=== PATIENT | female | born 1970 | race Caucasian/White ===

== ENCOUNTER → 2019-12-26 | Outpatient (CLI) | payer OTHER | LOC: M LABSMTC 10:58 | PROVIDERS: ATTEND Anesthesiology | DX: Z01.812 Encounter for preprocedural laboratory examination (principal); Z11.59 Encounter for screening for other viral diseases ==

== ENCOUNTER 2019-12-31 06:21 | Day surgery (SDC) | payer OTHER ==
[~2019-12-31] VITALS: Ht 167.6 cm; Wt 87.1 kg
[2019-12-31] MEDS ORDERED: LIDOCAINE 1% SDV 30ML VIAL As Ordered ONE (07:13)
[2019-12-31] MEDS ORDERED: ONDANSETRON 4MG/2ML VIAL As Ordered ONE (07:17)
[2019-12-31] MEDS ORDERED: fentaNYL 100 MCG/2 ML INJECTION (J3010) As Ordered ONE (07:17)
[2019-12-31] MEDS ORDERED: LIDOCAINE 2% 100MG/5ML SDV (FOR ANES.) As Ordered ONE (07:17)
[2019-12-31] MEDS ORDERED: propofoL 200 MG/20 ML VIAL As Ordered ONE (07:17)
[2019-12-31] MEDS ORDERED: METOCLOPRAMIDE INJ 10MG/2ML VIAL (J2765 PER 1) As Ordered ONE (07:17)
[2019-12-31] MEDS ORDERED: ROCURONIUM BROMIDE 50 MG/5 ML VIAL As Ordered ONE (07:17)
[2019-12-31] MEDS ORDERED: dexameTHASONE 4 MG/ML 1ML VIAL (J1100 PER 1MG) As Ordered ONE (07:17)
[2019-12-31] MEDS ORDERED: MIDAZOLAM INJ 2MG/2ML VIAL (J2250 PER 1MG) As Ordered ONE (07:18)
[2019-12-31] MEDS ORDERED: CLINDAMYCIN 900 MG/50 ML PREMIX BAG As Ordered ONE (07:34)
[2019-12-31] MEDS ORDERED: BUPIVACAINE HCL 0.5% 30 ML VIAL As Ordered ONE (07:41)
[2019-12-31] MEDS ORDERED: SUGAMMADEX SODIUM 500 MG/5 ML VIAL (BRIDION) As Ordered ONE (08:16)
[2019-12-31] MEDS ORDERED: KETOROLAC 60MG 2ML VIAL As Ordered ONE (08:16)
[2019-12-31] MEDS ORDERED: LR 1,000 ML IV ONE (09:45)
[2019-12-31] MEDS ORDERED: fentaNYL 100 MCG/2 ML INJECTION (J3010) IV PRN (09:45)
[2019-12-31] MEDS ORDERED: ONDANSETRON 4MG/2ML VIAL IV PRN (09:45)
[2019-12-31] MEDS ORDERED: oxyCODONE 5MG TAB PO PRN (09:45)
[2019-12-31] MEDS ORDERED: LR 1,000 ML IV SCH ×2 (09:45→10:00)
[2019-12-31 11:10] VITALS: BP 156/90
--- NOTE | 2020-02-13 09:55 | RO ---
DATE OF OPERATION: 12/31/2019 PREOPERATIVE DIAGNOSIS: Right shoulder mass. POSTOPERATIVE DIAGNOSIS: Right shoulder mass. PROCEDURE: Excision of right shoulder mass. SURGEON: Dr. Sean Guthrie ANESTHESIA: General. IV FLUIDS: Lactated Ringer's. ESTIMATED BLOOD LOSS: Less than 5 mL. IMPLANTS: None. CLOSURE: Monocryl and Steri-Strips. SPECIMEN: Right shoulder mass (presumed lipoma) send for permanent pathology. INDICATIONS: The patient has had a right shoulder mass that has been interfering with her quality of life. Preoperative workup including ultrasound and MRI revealed an encapsulated mass most consistent with a lipoma. No concerning features requiring IV contrast. Risks and benefits of the surgical excision were discussed and informed consent obtained. She understood there is the possibility of a low-grade liposarcoma which would require further surgical treatment. The patient's right shoulder was signed and she was brought to the operating room and placed supine on a well-padded OR table. General anesthesia was induced. She then positioned about 45 degrees in the beach chair position, and all bony prominences were well padded. Bilateral Venodyne boots for DVT prophylaxis. The right arm was then prepped and draped in a normal sterile fashion with ChloraPrep. She received appropriate IV antibiotics within one hour of incision. Prior to incision, a timeout was performed per hospital protocol. The mass was centered over the anterior deltoid. The skin was infiltrated with 0.5% Marcaine and then I made a longitudinal incision with a 15 blade over the mass. Dissection through the subcutaneous tissue with electrocautery and Metzenbaum scissors. The mass was located quite superficial and definitely superficial to the fascia. It was fairly well encapsulated. [place] retractors were then positioned and the presumed lipoma was released from the deltoid fascia and surrounding subcutaneous fat en bloc. Meticulous hemostasis with electrocautery. The mass was then sent for pathology. The remaining surgical field was inspected and there was no remaining lipoma. Incision was then carefully irrigated. Any residual bleeding was cauterized, and then the wound was closed in a layered fashion with 2-0 Vicryl and a running Monocryl. Steri- Strips were placed. A total of 12 mL of 0.5% Marcaine without epinephrine was injected. Sterile dressing was then applied. Drapes taken down. All counts were correct times 2. Complications: None. DISPOSITION: The patient was extubated and transferred to the PACU in stable condition. ALCON
== END 2019-12-31 11:22 | disposition home or self-care (01) ==
LOC: M SDC 06:21
PROVIDERS: ATTEND Orthopaedic Surgery
DX: D17.21 Benign lipomatous neoplasm of skin and subcutaneous tissue of right arm (principal); Z88.1 Allergy status to other antibiotic agents; Z79.899 Other long term (current) drug therapy; G43.909 Migraine, unspecified, not intractable, without status migrainosus; Z88.2 Allergy status to sulfonamides
CPT/HCPCS: 11403; 81025; 88304; J1100; J1885; J2250; J2405; J2765; J3010

== ENCOUNTER → 2021-06-15 | Outpatient (CLI) | payer OTHER | LOC: M WHC 07:16 | PROVIDERS: ATTEND Obstetrics & Gynecology | DX: Z12.31 Encounter for screening mammogram for malignant neoplasm of breast (principal) ==

== ENCOUNTER → 2022-06-16 | Outpatient (CLI) | payer OTHER | LOC: M WHC 07:28 | PROVIDERS: ATTEND Obstetrics & Gynecology | DX: Z12.31 Encounter for screening mammogram for malignant neoplasm of breast (principal) ==

== ENCOUNTER → 2022-07-06 | Outpatient (CLI) | payer OTHER | LOC: M WHC 15:25 | PROVIDERS: ATTEND Obstetrics & Gynecology | DX: Z30.433 Encounter for removal and reinsertion of intrauterine contraceptive device (principal) ==

== ENCOUNTER 2022-08-17 14:05 | Day surgery (SDC) | payer OTHER ==
[~2022-08-17] VITALS: Ht 167.6 cm; Wt 88.0 kg
[2022-08-17] MEDS ORDERED: LR 1,000 ML IV SCH ×2 (14:30→18:45)
[2022-08-17 14:40] LABS: HEMATOCRIT 40.3 % (36.0-47.0); HEMOGLOBIN 12.2 g/dl (12.0-15.5); MEAN CORPUSCULAR HEMOGLOBIN 18.1 pg (27.0-33.0); MEAN CORPUSCULAR HGB CONC 30.3 g/dl (32.0-36.5); MEAN CORPUSCULAR VOLUME 59.9 fl (80.0-96.0); PLATELET COUNT, AUTOMATED 370 10^3/uL (150-450); RED BLOOD COUNT 6.73 10^6/uL (4.00-5.40); WHITE BLOOD COUNT 9.2 10^3/uL (4.0-10.0)
[2022-08-17] MEDS ORDERED: propofoL 200 MG/20 ML VIAL As Ordered ONE ×2 (17:30→18:25)
[2022-08-17] MEDS ORDERED: LIDOCAINE 2% 100MG/5ML SDV (FOR ANES.) As Ordered ONE (17:30)
[2022-08-17] MEDS ORDERED: LIDOCAINE W/EPINEPHRINE 1% 20ML VIAL As Ordered ONE (17:57)
[2022-08-17] MEDS ORDERED: LEVONORGESTREL 52MG (MIRENA) IUD As Ordered ONE (17:58)
[2022-08-17] MEDS ORDERED: KETOROLAC 60MG 2ML VIAL As Ordered ONE (18:12)
[2022-08-17] MEDS ORDERED: LABETALOL 100MG/20ML VIAL As Ordered ONE (18:14)
[2022-08-17] MEDS ORDERED: ONDANSETRON 4MG 2ML VIAL IV PRN (18:45)
[2022-08-17] MEDS ORDERED: HYDROMORPHONE HCL 0.5 MG/ 0.5 ML SYRINGE IV PRN (18:45)
[2022-08-17] MEDS ORDERED: fentaNYL 100 MCG/2 ML INJECTION IV PRN (18:45)
[2022-08-17] MEDS ORDERED: oxyCODONE 5MG TAB PO PRN (18:45)
[2022-08-17 19:10] VITALS: BP 167/95
[2022-08-17 20:36] LABS: FOLLICLE STIMULATING HORMONE 70.3 mIU/ML
== END 2022-08-17 19:37 | disposition home or self-care (01) ==
LOC: M SDC 14:05
PROVIDERS: ATTEND Obstetrics & Gynecology
DX: D25.9 Leiomyoma of uterus, unspecified (principal); N85.4 Malposition of uterus; D64.9 Anemia, unspecified; G43.909 Migraine, unspecified, not intractable, without status migrainosus; Z88.2 Allergy status to sulfonamides; Z88.1 Allergy status to other antibiotic agents
CPT/HCPCS: 36415; 58300; 81025; 83001; 83002; 85027; 86850; 86900; 86901; J1885

== ENCOUNTER 2023-04-26 20:38 | Emergency (ER) | payer OTHER ==
[~2023-04-26] VITALS: Ht 165.1 cm; Wt 89.9 kg
[2023-04-26 20:38] VITALS: TEMP 97
[2023-04-26 21:42] LABS: BASO # 0.1 10^3/uL (0.0-0.2); BASO % 0.7 % (0.0-1.0); EOS # 0.4 10^3/uL (0.0-0.5); EOS % 3.6 % (0.0-3.0); HEMATOCRIT 37.8 % (36.0-47.0); HEMOGLOBIN 11.5 g/dl (12.0-15.5); LYMPH # 2.8 10^3/uL (1.5-5.0); LYMPH % 23.1 % (24.0-44.0); MEAN CORPUSCULAR HEMOGLOBIN 18.7 pg (27.0-33.0); MEAN CORPUSCULAR HGB CONC 30.4 g/dl (32.0-36.5); MEAN CORPUSCULAR VOLUME 61.5 fl (80.0-96.0); MONO # 0.6 10^3/uL (0.0-0.8); MONO % 5.1 % (2.0-8.0); NEUTROPHILS # 8.1 10^3/uL (1.5-8.5); NEUTROPHILS % 66.8 % (36.0-66.0); PLATELET COUNT, AUTOMATED 394 10^3/uL (150-450); RED BLOOD COUNT 6.15 10^6/uL (4.00-5.40); WHITE BLOOD COUNT 12.1 10^3/uL (4.0-10.0)
[2023-04-26] MEDS ORDERED: KETOROLAC 30 MG/ML 1ML VIAL IV ONE (21:50)
[2023-04-26] MEDS ORDERED: NS 1,000 ML IV SCH (21:50)
[2023-04-26 21:55] LABS: LIPASE 28 U/L (12-53)
[2023-04-26 21:57] LABS: ALBUMIN 4.3 G/DL (3.2-5.2); ALKALINE PHOSPHATASE 84 U/L (46-116); ALT/SGPT 57 U/L (7.0-40); AST/SGOT 34 U/L (<34); BILIRUBIN,DIRECT 0.4 MG/DL (<0.4); BILIRUBIN,TOTAL 1.2 MG/DL (0.3-1.2); BLOOD UREA NITROGEN 13 MG/DL (9-23); CALCIUM LEVEL 9.9 MG/DL (8.5-10.1); CARBON DIOXIDE LEVEL 28 MMOL/L (20-31); CHLORIDE LEVEL 107 MMOL/L (98-107); CREATININE FOR GFR 0.62 MG/DL (0.55-1.30); GLOMERULAR FILTRATION RATE > 60.0 (>51); GLUCOSE, FASTING 89 MG/DL (60-100); POTASSIUM SERUM 4.3 MMOL/L (3.5-5.1); SODIUM LEVEL 142 MMOL/L (136-145)
[2023-04-26 22:05] LABS: HCG, SERUM QUALITATIVE NEGATIVE (NEGATIVE)
[2023-04-26] MEDS ORDERED: METO1TAB32 PO (22:24)
[2023-04-26 22:30] VITALS: BP 126/85; O2SAT 99
[2023-04-26 22:43] LABS: INR 1.05; PROTHROMBIN TIME 13.4 SECONDS (12.5-14.5)
== END 2023-04-26 23:06 | disposition home or self-care (01) ==
LOC: M ED 20:38
DX: I88.0 Nonspecific mesenteric lymphadenitis (principal); Z88.2 Allergy status to sulfonamides; Z88.1 Allergy status to other antibiotic agents; Z88.8 Allergy status to other drugs, medicaments and biological substances
CPT/HCPCS: 74176; 80048; 80076; 81001; 83690; 84703; 85025; 85610; 96361; 96374; 99284; J1885

== ENCOUNTER → 2023-06-20 | Outpatient (CLI) | payer OTHER ==
[~2023-06-20] MED LIST: METO1TAB32 PO
== END ==
LOC: M WHC 07:00
PROVIDERS: ATTEND Obstetrics & Gynecology
DX: Z12.31 Encounter for screening mammogram for malignant neoplasm of breast (principal)

== ENCOUNTER → 2024-06-21 | Outpatient (CLI) | payer OTHER | LOC: M WHC 07:54 | PROVIDERS: ATTEND Obstetrics & Gynecology | DX: Z12.31 Encounter for screening mammogram for malignant neoplasm of breast (principal); M81.0 Age-related osteoporosis without current pathological fracture ==

== ENCOUNTER → 2024-09-11 | Outpatient (CLI) | payer OTHER | LOC: M WUC 09:13 | PROVIDERS: ATTEND Physician Assistant | DX: M25.561 Pain in right knee (principal) ==